=== PATIENT | female | born 1950 | race Caucasian/White ===

== ENCOUNTER → 2024-12-29 12:27 | Outpatient (REF) | payer OTHER, SELFPAY | LOC: WOUND 12:27 | PROVIDERS: ATTENDING PHYSICIAN Surgery; FAMILY PHYSICIAN Family Medicine | DX: L30.8 Other specified dermatitis (principal); L97.829 Non-pressure chronic ulcer of other part of left lower leg with unspecified severity; I89.0 Lymphedema, not elsewhere classified; L30.9 Dermatitis, unspecified | CPT/HCPCS: 99204 ==

== ENCOUNTER → 2025-01-03 13:26 | Outpatient (REF) | payer OTHER, SELFPAY | LOC: WOUND 13:26 | PROVIDERS: ATTENDING PHYSICIAN Surgery; FAMILY PHYSICIAN Family Medicine | DX: L30.8 Other specified dermatitis (principal); L97.829 Non-pressure chronic ulcer of other part of left lower leg with unspecified severity; I89.0 Lymphedema, not elsewhere classified; L30.9 Dermatitis, unspecified | CPT/HCPCS: 99213 ==

== ENCOUNTER → 2025-01-20 14:13 | Outpatient (REF) | payer OTHER, SELFPAY | LOC: WOUND 14:13 | PROVIDERS: ATTENDING PHYSICIAN Surgery; FAMILY PHYSICIAN Family Medicine | DX: L97.829 Non-pressure chronic ulcer of other part of left lower leg with unspecified severity (principal); L30.8 Other specified dermatitis; L03.116 Cellulitis of left lower limb; I89.0 Lymphedema, not elsewhere classified; L30.9 Dermatitis, unspecified | CPT/HCPCS: 99215 ==

== ENCOUNTER 2025-01-20 21:30 | Inpatient (IN) | payer OTHER, SELFPAY ==
[2025-01-20 14:53] VITALS: BP 117/77
--- NOTE | 2025-01-20 16:30 | ED.GENMED ---
History of Present Illness
<Kendra Duke PA-C - Last Filed: 01/20/25 21:53>
General
Chief Complaint: Swelling
Source: patient
Exam Limitations: none
Time Seen by Provider: 01/20/25 16:18
History of Present Illness
History of Present Illness:
74yoF with a history of lymphedema, hypertension, hyperlipidemia, hypothyroidism presenting for evaluation of left leg redness. She has chronic lower extremity lymphedema. Her left leg is typically more edematous and red compared to the right.
She has been on multiple courses of doxycycline over the past 3 months. She just finished a 10-day course yesterday. She started to see wound care earlier this month and has had 3 appointments thus far. She went to see the digital publishing specialist
today who sent her to the ED for IV antibiotics. does report that the redness has been spreading. She endorses chills but denies any fevers. No prior history of MRSA or diabetes. She has never been hospitalized for cellulitis in the past.
Phy Exam
<Kendra Duke PA-C - Last Filed: 01/20/25 21:53>
General Physical Exam
General Presentation: well appearing and no apparent distress
General Skin: warm and dry
General Habitus: normal
General Mental: alert
ENT Exam
ENT Exam: normocephalic
Pulmonary Exam
Pulmonary Exam: no respiratory distress
Neurological Exam
Neurological Exam: alert
Taye Coma Scale
Eye Opening: Spontaneous
Verbal Response: Oriented
Motor Response: Obeys Commands
GCS Total Score: 15
Skin Exam
Skin Exam: warm/dry and other (Significant lymphedema noted to LLE with erythema/warmth throughout the posterior leg and weeping. No open wounds noted. No crepitus or pain out of proportion. )
Psychiatric Exam
Psychiatric Exam: normal mood/affect
Scores
<Kendra Duke PA-C - Last Filed: 01/20/25 21:53>
Heart Failure Risk
Heart Failure Risk Score: Not Applicable
Course
<Kendra Duke PA-C - Last Filed: 01/20/25 21:53>
Orders/Labs/Results
Orders:
Orders
01/20/25 16:29
Venous Doppler Lwr Ext Left [US Periph Venous LOWER Ext LT] Urgent
Comment:
Reason For Exam: L leg swelling, redness
01/20/25 18:58
Vancomycin [Vancocin] 2,000 mg 0.9% Sodium Chloride 500 ml [Nss] 500 ml IV NOW
01/20/25 19:32
Complete Blood Count/With Diff Urgent
Comprehensive Metabolic Panel Urgent
Lactate Level [Lactic Acid] Urgent
Blood Culture Q30M
LAINEY Source: Blood/Venous
Specimen Description:
Blood Culture Q30M
LAINEY Source: Blood/Venous
Specimen Description:
01/20/25 19:59
Cefepime HCl [Maxipime] 2,000 mg IV NOW STA
Sterile Water [Sterile Water For Injection] 10 ml IV NOW STA
01/20/25 20:57
Admit/Transfer Patient As Directed
Co-Sign Provider:
Level of Care: Inpatient admission
Assign to:: Medical/Surgical
Physician / Group: julian
Diagnosis: cellulitis
Reason for Hospitalization: cellulitis
Expected length of stay greater than two midnights?: Yes
ELOS- Estimated Length of Stay in days: 3
I certify the patient meets the requirements for IP care: Yes
PRN Pain Medication Management As Directed
May give lesser potent ordered pain med per pt: Yes
preference::
Protocol:: Medication orders for pain may be administered in a
manner that supports deferring to patient preference
when the pt is:
- Requesting an ordered lesser potent pain medication.
Least to most potent pain medications are defined
as: acetaminophen < NSAID < tramadol < opioids
(morphine, oxycodone, hydromorphone).
- Requesting a lesser dose of the same medication IF
ORDERED.
- Requesting a less intrusive route of administration
if both routes are prescribed by the provider (PO <
IV).
01/20/25 20:58
Code Status As Directed
Resuscitation Status: Full Code
Abnormal Lab Results
01/20/25
19:32
RBC 3.87 L 10^6/uL
(4.20-5.40)
Hgb 11.9 L g/dL
(12.0-16.0)
MCHC 32.2 L g/dL
(33.0-37.0)
Absolute Neuts (auto) 6.7 H 10^3/uL
(1.4-6.5)
Absolute Lymphs (auto) 1.1 L 10^3/uL
(1.2-3.4)
Absolute Monos (auto) 0.7 H 10^3/uL
(0.1-0.6)
Neutrophils % 76.4 H %
(42.2-75.2)
Lymphocytes % 13.0 L %
(20.5-51.1)
BUN 20 H mg/dl
(7-17)
Glucose 104 H mg/dl
(70-99)
01/20/25 19:32
01/20/25 19:32
Vital Signs
Initial and Last Documented VS:
Initial Vital Signs
Temp Pulse Resp BP Pulse Ox
97.6 F 80 16 117/77 96
01/20/25 14:53 01/20/25 14:53 01/20/25 14:53 01/20/25 14:53 01/20/25 14:53
Last Documented Vital Signs
Temp Pulse Resp BP Pulse Ox
97.6 F 80 16 121/54 98
01/20/25 14:53 01/20/25 14:53 01/20/25 14:53 01/20/25 21:01 01/20/25 21:02
<Marshall Caban, DO - Last Filed: 01/20/25 21:03>
Orders/Labs/Results
Orders:
Orders
01/20/25 16:29
Venous Doppler Lwr Ext Left [US Periph Venous LOWER Ext LT] Urgent
Comment:
Reason For Exam: L leg swelling, redness
01/20/25 18:58
Vancomycin [Vancocin] 2,000 mg 0.9% Sodium Chloride 500 ml [Nss] 500 ml IV NOW
01/20/25 19:32
Complete Blood Count/With Diff Urgent
Comprehensive Metabolic Panel Urgent
Lactate Level [Lactic Acid] Urgent
Blood Culture Q30M
LAINEY Source: Blood/Venous
Specimen Description:
Blood Culture Q30M
LAINEY Source: Blood/Venous
Specimen Description:
01/20/25 19:59
Cefepime HCl [Maxipime] 2,000 mg IV NOW STA
Sterile Water [Sterile Water For Injection] 10 ml IV NOW STA
01/20/25 20:57
Admit/Transfer Patient As Directed
Co-Sign Provider:
Level of Care: Inpatient admission
Assign to:: Medical/Surgical
Physician / Group: julian
Diagnosis: cellulitis
Reason for Hospitalization: cellulitis
Expected length of stay greater than two midnights?: Yes
ELOS- Estimated Length of Stay in days: 3
I certify the patient meets the requirements for IP care: Yes
PRN Pain Medication Management As Directed
May give lesser potent ordered pain med per pt: Yes
preference::
Protocol:: Medication orders for pain may be administered in a
manner that supports deferring to patient preference
when the pt is:
- Requesting an ordered lesser potent pain medication.
Least to most potent pain medications are defined
as: acetaminophen < NSAID < tramadol < opioids
(morphine, oxycodone, hydromorphone).
- Requesting a lesser dose of the same medication IF
ORDERED.
- Requesting a less intrusive route of administration
if both routes are prescribed by the provider (PO <
IV).
01/20/25 20:58
Code Status As Directed
Resuscitation Status: Full Code
Abnormal Lab Results
01/20/25
19:32
RBC 3.87 L 10^6/uL
(4.20-5.40)
Hgb 11.9 L g/dL
(12.0-16.0)
MCHC 32.2 L g/dL
(33.0-37.0)
Absolute Neuts (auto) 6.7 H 10^3/uL
(1.4-6.5)
Absolute Lymphs (auto) 1.1 L 10^3/uL
(1.2-3.4)
Absolute Monos (auto) 0.7 H 10^3/uL
(0.1-0.6)
Neutrophils % 76.4 H %
(42.2-75.2)
Lymphocytes % 13.0 L %
(20.5-51.1)
BUN 20 H mg/dl
(7-17)
Glucose 104 H mg/dl
(70-99)
01/20/25 19:32
01/20/25 19:32
Vital Signs
Initial and Last Documented VS:
Initial Vital Signs
Temp Pulse Resp BP Pulse Ox
97.6 F 80 16 117/77 96
01/20/25 14:53 01/20/25 14:53 01/20/25 14:53 01/20/25 14:53 01/20/25 14:53
Last Documented Vital Signs
Temp Pulse Resp BP Pulse Ox
97.6 F 80 16 121/54 98
01/20/25 14:53 01/20/25 14:53 01/20/25 14:53 01/20/25 21:01 01/20/25 21:02
<Kendra Duke PA-C - Last Filed: 01/20/25 21:53>
MDM/Problems Addressed
Differential Diagnosis Includes:
74yoF sent in by wound care center for cellulitis. Hx of lymphedema. Has been on and off doxycycline for 3 months. +Chills. VSS. Patient well appearing in no distress. Evidence of cellulitis on exam with erythema/warmth. Differential diagnosis
includes: cellulitis, lymphedema, chronic venous stasis, less likely DVT, no clinical evidence of NSTI
Labs unremarkable including normal white count and lactate. Venous duplex negative for DVT. IV cefepime and vancomycin ordered. Patient admitted for further management.
<Kendra Duke PA-C - Last Filed: 01/20/25 21:53>
*Pulse Oximetry
SaO2: 96
Oxygen Mode of Delivery: Room air
Patient hypoxic: no
*Critical Care Note
Total Time (30-74mins, 75-104mins- exclusive of procedures): Not Applicable
ED Attending Note
<Kendra Duke PA-C - Last Filed: 01/20/25 21:53>
-
Portions of this chart may have been created with voice recognition software.� Occasional wrong word or��sound alike� substitutions may have occurred due to the inherent limitations of voice recognition software.
<Marshall Caban DO - Last Filed: 01/20/25 21:03>
ED Attending Note
Patient seen and examined by attending physician: Yes
ED Attending Note:
I reviewed and agree with history treatment plan by Kendra Duke PA-C. My exam revealed 74-year-old female with left lower leg lymphedema and cellulitis erythema and warmth noted on exam. Will treat patient with vancomycin. She has failed
outpatient treatment with doxycycline. Admit to hospitalist.
Discharge Plan
Departure
Patient Disposition: Admit
Date of Disposition: 01/20/25
Time of Disposition: 20:29
Presentation/result/management discussed w/ accepting MD/DO: Hospitalist
Discharge Problem:
Cellulitis of left leg
Interventions
Interventions:
*Risk Screen - Suicide Last Done: 01/20/25 14:53
*General Assessment Last Done: 01/20/25 19:22
*Neglect/Abuse Screening Last Done: 01/20/25 14:53
*ED- Fall Risk Assessment Last Done: 01/20/25 19:22
*ED COVID-19 Vaccine History Last Done: 01/20/25 19:22
*ED Influenza Vaccine History Last Done: 01/20/25 19:22
ED- Cardiac Assessment Last Done: 01/20/25 19:22
ED- Pulmonary Assessment Last Done: 01/20/25 19:22
ED-Skin Assessment Last Done: 01/20/25 19:22
[2025-01-20 17:03] VITALS: BMI 46.1
[2025-01-20 19:21] VITALS: BP 136/71
[2025-01-20] MEDS: VANCOCIN 540 MG IV (19:45)
[2025-01-20 20:00] VITALS: BP 107/54
[2025-01-20] MEDS: MAXIPIME 2000 MG IV (20:07)
[2025-01-20] MEDS: STERILE WATER FOR INJECTION 10 ML IV (20:07)
--- NOTE | 2025-01-20 20:32 | HPS.HSE ---
Addendum entered and electronically signed by David Mendiola DO 01/20/25 22:17:
Patient seen and examined independently. Agree with findings and plan as set forth by SARAH Malone.
Patient is a 74y F with PMH significant for chronic lymphedema - L > R, hypertension and morbid obesity who presents to ED at the direction of her Wound Care physician for evaluation of red, weeping, swollen LLE. Patient has been treated for
chronic lymphedema / associated skin changes for months. She has had lymphedema therapy, topical therapy, etc at multiple institutions including [facility] and - most recently - here at . Patient states that she had been on doxycycline off-and-on
for the better part of the past 3 months. She has had increased swelling, redness and marked increase in oozing / fluid drainage from the LLE in that time. With persistent / progressive changes, patient was referred to the ED for evaluation /
admission.
Ass:
Chronic L > R LE Lymphedema
Chronic Venous Stasis Dermatitis
Moisture-Associated Skin Damage
Possible Cellulitis
Hypothyroidism
Benign Hypertension
Morbid Obesity due to excess calories
Plan:
Admit for further evaluation and treatment.
Continue IV Vancomycin for now.
Wound Care eval for local / topical care recommendations.
PT / Lymphedema evaluation.
Efforts to improve moisture control will be important.
Continue usual home medication regimen.
Original Note:
Family Physician
-
Family Physician: Ravinder Jean
Chief Complaint
-
left LE redness
History of Present Illness
74yoF with a history of lymphedema, hypertension, hyperlipidemia, hypothyroidism,mitral valve proplase, heart murmur presenting for evaluation of left leg redness,swelling and weeping. Her left leg is typically more edematous and red compared to
the right. She has been on multiple courses of doxycycline over the past 3 months. She just finished a 10-day course yesterday. She started to see wound care earlier this month and has had 3 appointments thus far. She went to see the wound care
specialist today who sent her to the ED for IV antibiotics. patient also seeing Dermatology as outpatient. does report that the redness has been spreading and getting worse depsite on the antibiotics.her left LE is constantly weeping clear
drainage. She endorses chills but denies any fevers. denied , dizzy or syncope. denied chest pain, sob.denied abdominal pain,n,v,d. denied dysuria or hematuria.
initiated on cefpime and vanoc in ER. blood culture sent from ER. admitting for further management.
Medical History
Past Medical History
Past Medical History: Reports Other
Additional Past Medical History:
Hyperlipidemia, lymphedema, hypothyroidism, hypertension,mitral valve prolapse, heart murmur
Past Surgical History: Reports Other
Additional Past Surgical History:
right knee replacement
partial hysterectomy
Social History
Tobacco: Non-smoker
Alcohol: None
Drug: None
Family History
Family History: Not pertinent
Allergies / Home Medications
Allergies reflects when Allergies were last updated in [facility].
Home Medications with original date entered in [facility]
Allergy/Medication List:
Allergies
Allergy/AdvReac Type Severity Reaction Status Date / Time
Penicillins Allergy Unknown Unknown Verified 01/20/25 14:53
Home Medications
atorvastatin 40 mg tablet (Lipitor) 40 mg PO QPM High Cholesterol 01/20/25
cetirizine 10 mg tablet (Zyrtec) 10 mg PO DAILY Allergies 01/20/25
furosemide 20 mg tablet (Lasix) 20 mg PO BID Fluid Retention/Swelling 01/20/25
levothyroxine 112 mcg tablet (Synthroid) 112 mcg PO DAILY Thyroid 01/20/25
losartan 50 mg tablet 50 mg PO DAILY Heart Disease/Condition 01/20/25
metoprolol succinate 25 mg tablet,extended release 24 hr (Toprol XL) 25 mg PO DAILY Heart Disease/Condition 01/20/25
naproxen 500 mg tablet 500 mg PO BIDPRN PRN MILD PAIN 01/20/25
potassium chloride 20 mEq tablet,extended release 20 meq PO DAILY Electrolyte Repletion 01/20/25
Review of Systems
-
Constitutional: Reports No Symptoms
EENT: Reports No Symptoms
Respiratory: Reports No Symptoms
Cardiac: Reports No Symptoms
Abdomen/GI: Reports No Symptoms
: Reports No Symptoms
Musculoskeletal: Reports No Symptoms
Skin: Reports Other (left LE red and swollen )
Neurological: Reports No Symptoms
Endocrine: Reports No Symptoms
Hematologic/Lymphatic: Reports No Symptoms
Psych: Reports No Symptoms
Physical Exam
Vital Signs
Vital Signs
Temp Pulse Resp BP Pulse Ox
97.6 F 80 16 107/54 98
01/20/25 14:53 01/20/25 14:53 01/20/25 14:53 01/20/25 20:00 01/20/25 20:15
Physical Exam
General: Well Developed, Well Nourished and No Apparent Distress
HEENT: NormoCephalic, Moist mucous membranes and Atraumatic
Respiratory: Clear
Cardiac: S1/S2 and Regular Rhythm; No Murmur or Rub
GI: Soft, Non Tender, Non Distended and Normal Bowel Sounds; No Organomegaly
Rectal: Deferred by Provider
Musculoskeletal: No Clubbing, No Cyanosis and No Edema
Skin: Rash and Other (left LE red, swollen, oozing clear )
Neuro: AO x 3 and Nonfocal/grossly intact
Psych: Calm
Laboratory Results
-
Laboratory Results
Lactic Acid 1.0 mmol/L (0.7-2.0) 01/20/25 19:32
Data Reviewed
-
Lab Data: Labs Reviewed by me
Impression/Plan
-
# Worsening left leg redness/swelling concern for cellulitis
# History for lymphedema
- Failed outpatient antibiotic therapy
- IV Vanco
- Duplex negative for DVT
- Wound care consulted
- Tylenol as needed for pain
#hxt of mitral valve prolapse
#hxt of heart murmur
-follows [facility] cardiology
#HLD
-statin continued
#hypothyroidism
-levothyroxine continued
#essential HTN
-losartan,metoprolol continued
-Lasix continued
#DVT prophylaxis
-Lovenox
#CODE status
-full code
[2025-01-20 21:01] VITALS: BP 121/54
[2025-01-20 21:32] LABS: Hematocrit 37.0 % (37.0-47.0); Hemoglobin 11.9 g/dL (12.0-16.0); Mean Corp Hgb Conc. 32.2 g/dL (33.0-37.0); Mean Corpuscular Volume 95.6 fL (81.0-99.0); Nucleated Red Blood Cells % 0 %; Platelet Count 337 10^3/uL (130-400); Red Cell Dist. Width 14.0 % (11.5-14.5)
[2025-01-20 21:45] LABS: ALT (SGPT) 24 U/L (0-35); AST (SGOT) 26 U/L (14-36); Albumin 3.9 g/dl (3.5-5.0); Alkaline Phosphatase 76 U/L (38-126); Blood Urea Nitrogen 20 mg/dl (7-17); Calcium 10.1 mg/dl (8.4-10.2); Carbon Dioxide 29 mmol/L (22-30); Chloride 102 mmol/L (98-107); Estimated Creatinine Clearance 65 ml/min; Glucose 104 mg/dl (70-99); Potassium 4.1 mmol/L (3.5-5.1); Sodium 135 mmol/L (135-145); Total Protein 6.6 g/dl (6.3-8.2); eGFR > 60.00
[2025-01-20 22:45] VITALS: BP 127/58
--- NOTE | 2025-01-20 23:00 | PTCARENOTE ---
Patient received from ED, AAOX3, ambulates assist x 1 with RW. Apical regular, +4 pitting lower extremity edema bilaterally. L>R Lungs clear on room air. Abdomen round hypoactive bowel sounds. Voids. #20 g in LAC flushed and patent.
[2025-01-21] MEDS: SYNTHROID 112 MCG PO (05:19)
[2025-01-21 06:00] VITALS: BMI 45.3
[2025-01-21 07:00] VITALS: BP 115/52
[2025-01-21 07:46] LABS: Hematocrit 34.0 % (37.0-47.0); Hemoglobin 11.3 g/dL (12.0-16.0); Mean Corp Hgb Conc. 33.2 g/dL (33.0-37.0); Mean Corpuscular Volume 93.9 fL (81.0-99.0); Platelet Count 298 10^3/uL (130-400); Red Cell Dist. Width 14.0 % (11.5-14.5)
--- NOTE | 2025-01-21 07:59 | PHA.VAN.IN ---
Assessment
- Assessment
Renal Function: Unknown baseline
AUC Dosing Plan
- Dosing Variables
Dosing Weight (kg): 101.746
Dosing CrCl (ml/min): 64
Vd coefficient (L/kg): 0.5
- Empiric Dosing
Initial / Loading Dose: 2000mg
Maintenance Regimen: 1500mg q24h
Estimated AUC (mcg*h/mL): 535
Estimated Peak (mcg*h/mL): 39.4
Estimated Trough (mcg/ml): 10.8
Estimated Half Life (H): 12
- Monitoring
No levels ordered at this time: consider at steady state
Pharmacokinetics Vancomycin I
- -
Patient Age: 74
Patient Sex: Female
Vancomycin Day #: 1
Indication: Skin And Soft Tissue
Requesting Provider: gayathri santana
Pertinent Antimicrobial Allergies:
pcns=unknown
Height / Weight:
Height 4 ft 11 in
Actual Weight 101.746 kg
IBW in k.2
- Vital Signs / Lab Results
Temp Pulse Resp BP Pulse Ox
97.9 F 87 20 127/58 100
01/20/25 22:45 01/20/25 22:45 01/20/25 22:45 01/20/25 22:45 01/20/25 23:00
Lab Results - Hematology
01/20/25 01/21/25
19:32 06:45
WBC 8.8 6.6
Lab Results - Chemistry
01/20/25
19:32
BUN 20 H
Creatinine 0.8
Estimated Creat Clear 65
Albumin 3.9
01/20/25
19:32
Lactic Acid 1.0
[2025-01-21 08:05] LABS: Blood Urea Nitrogen 16 mg/dl (7-17); Calcium 9.9 mg/dl (8.4-10.2); Carbon Dioxide 29 mmol/L (22-30); Chloride 104 mmol/L (98-107); Estimated Creatinine Clearance 73 ml/min; Glucose 110 mg/dl (70-99); Potassium 4.3 mmol/L (3.5-5.1); Sodium 138 mmol/L (135-145); eGFR > 60.00
[2025-01-21] MEDS: LASIX 20 MG PO ×2 (09:04→15:14)
[2025-01-21] MEDS: TOPROL XL 25 MG PO (09:05)
[2025-01-21] MEDS: ZYRTEC 10 MG PO (09:05)
[2025-01-21] MEDS: COZAAR 50 MG PO (09:05)
[2025-01-21] MEDS: KCL 20 MEQ PO (09:05)
--- NOTE | 2025-01-21 09:30 | W.PN.HOSP.TC ---
Today's Communication/Plan
-
IV vancomycin
Consulted ID
Assessment / Plan
Assessment / Plan
Physical Exam
General: Obese, No Apparent Distress
HEENT: Normocephalic, Moist mucous membranes and Atraumatic
Respiratory: Clear
Cardiac: S1/S2 and Regular Rhythm; No Murmur or Rub
GI: Soft, Non Tender, Non Distended and Normal Bowel Sounds;
Rectal: no bleeding
Musculoskeletal: No Clubbing, No Cyanosis and No Edema
Skin: b/l lymphedema. Rash and Other (left LE red, swollen, oozing clear )
Neuro: AO x 3 and Nonfocal/grossly intact
Psych: Calm
A/P:
# Worsening left leg redness/swelling concern for cellulitis
# History for lymphedema
- Failed outpatient antibiotic therapy
- IV Vanco
- Duplex negative for DVT
She reports less pain in legs
-Blood culture is pending
- Wound care consulted. No fever or leukocytosis.
- Tylenol as needed for pain
- consulted ID, help appreciated.
#hxt of mitral valve prolapse
#hxt of heart murmur
-follows [facility] cardiology
# Morbid Obesity BMI 45
# Skin dermatitis on arm, she requested triamcinolone cream
#HLD
-statin continued
#hypothyroidism
-levothyroxine continued
#essential HTN
-losartan,metoprolol continued
-Lasix continued
#DVT prophylaxis
-Lovenox
#CODE status
-full code
Total time spent to see the patient, examine the patient, review data and lab results, discuss treatment plan with patient, nursing staff around 55 minutes
Anticipated Discharge: > 48 hours
Subjective/Interval History
-
Date of Service: January 21, 2025
She reports feeling better
Not much pain in lower extremities
Objective Data
-
Labs:
Laboratory Results
01/20/25 01/21/25
19:32 06:45
WBC 8.8 6.6
Hgb 11.9 L 11.3 L
Hct 37.0 34.0 L
Plt Count 337 298
Sodium 135 138
Potassium 4.1 4.3
Chloride 102 104
Carbon Dioxide 29 29
BUN 20 H 16
Creatinine 0.8 0.7
Glucose 104 H 110 H
Calcium 10.1 9.9
Total Bilirubin 0.8
AST 26
ALT 24
Alkaline Phosphatase 76
Vital Signs:
Vital Signs
Temp Pulse Resp BP Pulse Ox
98.3 F 83 18 115/52 95
01/21/25 07:00 01/21/25 07:00 01/21/25 07:00 01/21/25 07:00 01/21/25 07:00
[2025-01-21 11:16] VITALS: BP 106/67
--- NOTE | 2025-01-21 11:46 | CON.ID ---
Consultation
-
Date/Time Consultation Requested: 01/21/2025 06:55
Date/Time Consultation Performed: 01/21/2025 1146
Requesting Provider: Dr. Carpenter
Performing Provider: Dr. Chilel
Reason for Consultation: Lower extremity cellulitis
Chief Complaint / Past History
History of Present Illness
Maxwell Garcia is a 74-year-old female being seen in infectious ease consult regarding left lower extremity cellulitis. History is obtained from chart review, along with patient interview.
The patient has a longstanding history of lymphedema which she believes began around 2012. In that time she has tried to care for the legs, but ultimately the lymphedema has progressed to stage IV disease. She reports prior evaluations at [facility] without significant improvement. She notes that earlier this week she began to have increasing drainage from the left lower extremity, along with some discomfort. She also noted increasing redness. She admits to some chills,
but has not developed any fevers. Because of the drainage and redness she presented to the emergency room for further evaluation. Here she was started on empiric antibiotics and Infectious Diseases is asked to comment upon further antibiotic
management.
At today's visit she notes that the drainage has improved since admission.
Past History
Additional Past Medical History:
Chronic stage IV lower extremity lymphedema (L >R)
Hypothyroidism
HTN
Morbid obesity
Hx mitral valve prolapse
Additional Past Surgical History:
Right knee replacement
Partial hysterectomy
Allergy History:
Penicillins Allergy (Unknown, Verified 01/20/25 14:53)
'I was told I was allergic by my parents'
Medications Reviewed: Yes
Current Antibiotics:
- Vancomycin (dosing per pharmacy)
Social History
Tobacco: Former Smoker
Alcohol: None
Drug: None
Employment: Retired
Family History
Family History: Not Pertinent
Review of Systems
Vital Signs
Temp Pulse Resp BP Pulse Ox
98.3 F 83 18 115/52 95
01/21/25 07:00 01/21/25 07:00 01/21/25 07:00 01/21/25 07:00 01/21/25 07:00
Physical Exam
Physical Exam
Constitutional: No Acute Distress, Comfortable, Non-toxic and Obese
Head: Normocephalic
Eyes: Pupils Equal, Pupils Round, No Conjunctival Hemorrhage and Sclera Anicteric
Oral: No Thrush and No Ulcers
Cardiovascular: S1/S2 and Murmur; Negative S3/S4
Pulmonary: Clear; Negative Wheezes, Rales or Rhonchi
Gastrointestinal: Soft, Non Tender, Non Distended and Normal Bowel Sounds
Extremities: Edema (4+ bilateral lower extremity edema. Stage IV bilateral lymphedema (L >R)) and Erythema (Distal left lower extremity)
Skin: Warm and Dry
Neurological: Awake and Alert
Psychological: Calm
Lab / Diagnostic Study Results
01/21/25 06:45
01/21/25 06:45
Abs Immat Gran (auto) 0.0 10^3/uL (0-0.05) 01/20/25 19:32
Absolute Neuts (auto) 6.7 10^3/uL (1.4-6.5) H 01/20/25 19:32
Absolute Lymphs (auto) 1.1 10^3/uL (1.2-3.4) L 01/20/25 19:32
Absolute Monos (auto) 0.7 10^3/uL (0.1-0.6) H 01/20/25 19:32
Absolute Basos (auto) 0.0 10^3/uL (0-0.2) 01/20/25 19:32
Immature Gran % 0.3 % (0-0.5) 01/20/25 19:32
Neutrophils % 76.4 % (42.2-75.2) H 01/20/25 19:32
Lymphocytes % 13.0 % (20.5-51.1) L 01/20/25 19:32
Monocytes % 8.4 % (1.7-9.3) 01/20/25 19:
Eosinophils % 1.4 % (0-6) 01/20/25 19:32
Basophils % 0.5 % (0-2) 01/20/25 19:32
Lactic Acid 1.0 mmol/L (0.7-2.0) 01/20/25:
Microbiology Results
Micro:
01/20/25: Blood Culture - Pending
Blood/Venous
01/20/25 Blood Culture - Pending
Blood/Venous
Imaging:
01/20/2025 Duplex ultrasound left lower extremity: no sonographic evidence for left lower extremity DVT. Distal lower extremity veins were not visualized secondary to soft tissue edema.
Assessment / Plan
Left lower extremity erythema; suspected cellulitis
Stage IV bilateral lower extremity lymphedema; uncontrolled
Normal white count with left shift
Hypothyroidism
HTN
Morbid obesity
Hx mitral valve prolapse
Recommendations:
Blood cultures obtained and currently in progress.
Narrow antibiotic therapy to cefazolin 2 gm IV q.8 hours.
Patient counseled extensively on lymphedema including etiology, pathophysiology and therapies.
Will order lower extremity Dheeraj wrap's. Patient instructed to elevate legs above the level of the heart 1 hour out of every 6.
Patient also instructed in lymphatic massage which she can self perform.
Will follow for clinical improvement.
--- NOTE | 2025-01-21 12:06 | CM ---
Initial assessment completed. Patient is a 74yoF with a history of lymphedema, hypertension, hyperlipidemia, hypothyroidism,mitral valve proplase, heart murmur presenting for evaluation of left leg redness,swelling and weeping.
Patient resides w/ spouse in a single story home, 1/2 step to enter. Patient ambulates independently w/ a RW and cane. Patient stated she uses a RW when out in the community and a smaller RW or her cane while in the home. Patient has toilet rail,
grab bar and shower chair in bathroom.
SNF in [place], home PT hx in [place]. Patient goes to the [facility]. Patient will begin going to the [facility] on 02/24.
Address, point of contact and insurance verified
PCP: Ravinder Jean
Pharmacy: [facility] for [facility]
PT/OT evaluated patient, no skilled needs at d/c
Plan: Home, no needs
[2025-01-21] MEDS: MIRALAX 17 GRAMS PO (13:46)
[2025-01-21] MEDS: TRIAMCINOLONE ACETONIDE 0.025% CREAM 1 APPLIC TOPICAL ×2 (13:46→20:45)
[2025-01-21 15:00] VITALS: BP 117/65
[2025-01-21] MEDS: ANCEF 10 IV ×2 (15:04→22:38)
[2025-01-21] MEDS: LOVENOX 40 MG SC (18:00)
[2025-01-21] MEDS: LIPITOR 40 MG PO (18:00)
[2025-01-21] MEDS: NAPROSYN 500 MG PO (18:42)
[2025-01-21 23:00] VITALS: BP 103/73
[2025-01-22] MEDS: ANCEF 10 IV ×3 (06:17→21:05)
[2025-01-22] MEDS: SYNTHROID 112 MCG PO (06:18)
[2025-01-22 07:00] VITALS: BP 119/66
[2025-01-22 07:44] LABS: Hematocrit 31.6 % (37.0-47.0); Hemoglobin 10.4 g/dL (12.0-16.0); Mean Corp Hgb Conc. 32.9 g/dL (33.0-37.0); Mean Corpuscular Volume 94.0 fL (81.0-99.0); Platelet Count 279 10^3/uL (130-400); Red Cell Dist. Width 14.1 % (11.5-14.5)
[2025-01-22 07:52] LABS: Blood Urea Nitrogen 19 mg/dl (7-17); Calcium 9.7 mg/dl (8.4-10.2); Carbon Dioxide 29 mmol/L (22-30); Chloride 104 mmol/L (98-107); Estimated Creatinine Clearance 64 ml/min; Glucose 102 mg/dl (70-99); Potassium 4.4 mmol/L (3.5-5.1); Sodium 136 mmol/L (135-145); eGFR > 60.00
[2025-01-22] MEDS: TOPROL XL 25 MG PO (09:13)
[2025-01-22] MEDS: KCL 20 MEQ PO (09:14)
[2025-01-22] MEDS: MIRALAX 17 GRAMS PO (09:15)
[2025-01-22] MEDS: COZAAR 50 MG PO (09:15)
[2025-01-22] MEDS: LASIX 20 MG PO ×2 (09:15→16:52)
[2025-01-22] MEDS: ZYRTEC 10 MG PO (09:16)
[2025-01-22] MEDS: TRIAMCINOLONE ACETONIDE 0.025% CREAM 1 APPLIC TOPICAL ×2 (09:21→21:03)
--- NOTE | 2025-01-22 09:26 | W.PN.HOSP.TC ---
Today's Communication/Plan
-
IV Ancef
Wound care
c/w bilateral lower extremity Dheeraj Warp
Assessment / Plan
Assessment / Plan
Physical Exam
General: Obese, No Apparent Distress
HEENT: Normocephalic, Moist mucous membranes and Atraumatic
Respiratory: Clear
Cardiac: S1/S2 and Regular Rhythm; No Murmur or Rub
GI: Soft, Non Tender, Non Distended and Normal Bowel Sounds;
Rectal: no bleeding
Musculoskeletal: No Clubbing, No Cyanosis and No Edema
Skin: b/l lymphedema. Rash and Other (left LE red, swollen, oozing clear )
Neuro: AO x 3 and Nonfocal/grossly intact
Psych: Calm
A/P:
# Worsening left leg redness/swelling concern for cellulitis
# History for lymphedema
- Failed outpatient antibiotic therapy
- IV Vanco, changed to IV Ancef
- Duplex negative for DVT
She reports less pain in legs
-Blood culture is NGTD
- Wound care consulted. No fever or leukocytosis.
- Tylenol as needed for pain
- consulted ID, help appreciated.
#hxt of mitral valve prolapse
#hxt of heart murmur
-follows [facility]
# Chronic pain
Pt requested to c/w Naproxen PRN in the hospital.
# constipation
Ordered MiraLAX
# Morbid Obesity BMI 45
# Skin dermatitis on arm, she requested triamcinolone cream
#HLD
-statin continued
#hypothyroidism
-levothyroxine continued
#essential HTN
-losartan,metoprolol continued
-Lasix continued
#DVT prophylaxis
-Lovenox
#CODE status
-full code
Total time spent to see the patient, examine the patient, review data and lab results, discuss treatment plan with patient, nursing staff around 55 minutes
Anticipated Discharge: > 48 hours
Subjective/Interval History
-
Date of Service: January 22, 2025
She is feeling better
No pain or fever or chills
Objective Data
-
Labs:
Laboratory Results
01/22/25
06:12
WBC 5.9
Hgb 10.4 L
Hct 31.6 L
Plt Count 279
Sodium 136
Potassium 4.4
Chloride 104
Carbon Dioxide 29
BUN 19 H
Creatinine 0.8
Glucose 102 H
Calcium 9.7
Vital Signs:
Vital Signs
Temp Pulse Resp BP Pulse Ox
98.1 F 78 18 119/66 96
01/22/25 07:00 01/22/25 07:00 01/22/25 07:00 01/22/25 07:00 01/22/25 07:00
I&O
01/21/25 01/22/25 01/23/25
06:59 05:59 06:59
Intake Total 1380 / 1380
Balance 1380 / 1380
--- NOTE | 2025-01-22 12:51 | PTCARENOTE ---
LLE reddened with local erythema, edematous, oozing clear drainage, more on distal aspect. sitting oob in chair, encouraged to elevate while oob to help decrease edema. re-wrapped with ariana wrap this am after adaptic, 4x4's, abd's applied.
tolerating diet, vss, will continue to monitor.
[2025-01-22] MEDS: FLUSH (NSS) 2 FLUSH IV (14:31)
[2025-01-22 15:00] VITALS: BP 104/60
[2025-01-22] MEDS: LIPITOR 40 MG PO (16:56)
[2025-01-22] MEDS: LOVENOX 40 MG SC (16:56)
[2025-01-22] MEDS: TYLENOL 650 MG PO (21:08)
[2025-01-22 23:05] VITALS: BP 107/51
[2025-01-23] MEDS: SYNTHROID 112 MCG PO (05:33)
[2025-01-23] MEDS: ANCEF 10 IV ×3 (05:33→22:50)
[2025-01-23 05:50] VITALS: BMI 46.1
--- NOTE | 2025-01-23 05:55 | PTCARENOTE ---
Pt awake intermittently t/o the night. Pt ambulatory to bathroom when needed with assistance. PRN Tylenol administered for pain. LLE ariana wrap in place. No issues to report. Vital signs stable. WIll continue to monitor.
[2025-01-23 07:35] VITALS: BP 109/58
[2025-01-23 07:37] LABS: Hematocrit 33.4 % (37.0-47.0); Hemoglobin 11.1 g/dL (12.0-16.0); Mean Corp Hgb Conc. 33.2 g/dL (33.0-37.0); Mean Corpuscular Volume 93.8 fL (81.0-99.0); Platelet Count 294 10^3/uL (130-400); Red Cell Dist. Width 13.9 % (11.5-14.5)
[2025-01-23] MEDS: KCL 20 MEQ PO (07:50)
[2025-01-23] MEDS: MIRALAX 17 GRAMS PO (07:50)
[2025-01-23] MEDS: TOPROL XL 25 MG PO (07:51)
[2025-01-23] MEDS: COZAAR 50 MG PO (07:51)
[2025-01-23] MEDS: LASIX 20 MG PO (07:51)
[2025-01-23] MEDS: TRIAMCINOLONE ACETONIDE 0.025% CREAM 1 APPLIC TOPICAL ×2 (07:52→20:15)
[2025-01-23] MEDS: ZYRTEC 10 MG PO (07:52)
[2025-01-23 08:05] LABS: Blood Urea Nitrogen 21 mg/dl (7-17); Calcium 10.0 mg/dl (8.4-10.2); Carbon Dioxide 30 mmol/L (22-30); Chloride 102 mmol/L (98-107); Estimated Creatinine Clearance 74 ml/min; Glucose 100 mg/dl (70-99); Potassium 4.8 mmol/L (3.5-5.1); Sodium 136 mmol/L (135-145); eGFR > 60.00
--- NOTE | 2025-01-23 12:27 | W.PN.ID1 ---
Date of Service
Date of Service: January 23, 2025
Today's Communication
Continue abx.
Assessment / Plan
Left lower extremity erythema; suspected cellulitis
Stage IV bilateral lower extremity lymphedema; uncontrolled
Normal white count with left shift
Hypothyroidism
HTN
Morbid obesity
Hx mitral valve prolapse
Recommendations:
Blood cultures NGTD
Continue cefazolin 2 gm IV q.8h another 24-48h and then transtion to oral keflex.
Patient counseled extensively on lymphedema including etiology, pathophysiology and therapies.
Continue lower extremity Dheeraj wrap's. Patient instructed to elevate legs above the level of the heart 1 hour out of every 6.
Patient also instructed in lymphatic massage which she can self perform.
Mild clinical improvement noted today.
Chief Complaint
-: Cellulitis
Subjective / Review of Systems
Review of Systems: No Fever and No Chills
Vital Signs / Physical Exam
Vital Signs
Vital Signs
Temp Pulse Resp BP Pulse Ox
98.1 F 73 12 109/58 94
01/23/25 07:35 01/23/25 07:35 01/23/25 07:35 01/23/25 07:35 01/23/25 07:35
Physical Exam
Constitutional: Comfortable, Non-toxic and Obese
Eyes: Sclera Anicteric
Cardiovascular: S1/S2; Negative S3/S4
Pulmonary: Non Labored
Gastrointestinal: Soft and Non Tender
Extremities: Edema (Stage IV B/L LE lymphedema; L>>R. ) and Erythema (B/L. Little significant warmth or tenderness.)
Neurological: Awake and Alert
Psychological: Calm
Objective Data
Lab Data
Lab Results
01/23/25 06:35
01/23/25 06:35
Estimated Creat Clear 74 ml/min 01/23/25 06:35
Lactic Acid 1.0 mmol/L (0.7-2.0) 01/20/25 19:32
Total Bilirubin 0.8 mg/dl (0.2-1.3) 01/20/25 19:32
AST 26 U/L (14-36) 01/20/25 19:32
ALT 24 U/L (0-35) 01/20/25 19:32
Alkaline Phosphatase 76 U/L (38-126) 01/20/25 19:32
Most recent labs reviewed.
Micro Results:
01/20/25 19:32 Blood Culture - Preliminary
Blood/Venous No Growth in 48 hours- Final report to follow
01/20/25 19:32 Blood Culture - Preliminary
Blood/Venous No Growth in 48 hours- Final report to follow
Imaging:
01/20/2025 Duplex ultrasound left lower extremity: no sonographic evidence for left lower extremity DVT. Distal lower extremity veins were not visualized secondary to soft tissue edema.
--- NOTE | 2025-01-23 13:41 | W.PN.HOSP.TC ---
Today's Communication/Plan
-
Continue IV antibiotics for another 24 to 48 hours
Wound care, Dheeraj wrap's
Assessment / Plan
Assessment / Plan
Physical Exam
General: Obese, No Apparent Distress
HEENT: Normocephalic, Moist mucous membranes and Atraumatic
Respiratory: Clear
Cardiac: S1/S2 and Regular Rhythm; No Murmur or Rub
GI: Soft, Non Tender, Non Distended and Normal Bowel Sounds;
Rectal: no bleeding
Musculoskeletal: No Clubbing, No Cyanosis and No Edema
Skin: b/l lymphedema. Rash and Other (left LE red, swollen, oozing clear )
Neuro: AO x 3 and Nonfocal/grossly intact
Psych: Calm
A/P:
# Worsening left leg redness/swelling concern for cellulitis
# History for lymphedema
- Failed outpatient antibiotic therapy
- IV Vanco, changed to IV Ancef, continue for another 24 to 48 hours
- Duplex negative for DVT
She reports less pain in legs
-Blood culture is NGTD
- Wound care consulted. No fever or leukocytosis.
- Tylenol as needed for pain
- consulted ID, help appreciated.
#hxt of mitral valve prolapse
#hxt of heart murmur
-follows [facility]
# Chronic pain
Pt requested to c/w Naproxen PRN in the hospital.
# constipation
Ordered MiraLAX
# Morbid Obesity BMI 45
# Skin dermatitis on arm, she requested triamcinolone cream
#HLD
-statin continued
#hypothyroidism
-levothyroxine continued
#essential HTN
-losartan,metoprolol continued
-Lasix continued
#DVT prophylaxis
-Lovenox
#CODE status
-full code
Anticipated Discharge: 24 - 48 hours
Subjective/Interval History
-
Date of Service: January 23, 2025
Erythema, weeping improving
Objective Data
-
Labs:
Laboratory Results
01/23/25
06:35
WBC 5.2
Hgb 11.1 L
Hct 33.4 L
Plt Count 294
Sodium 136
Potassium 4.8
Chloride 102
Carbon Dioxide 30
BUN 21 H
Creatinine 0.7
Glucose 100 H
Calcium 10.0
Vital Signs:
Vital Signs
Temp Pulse Resp BP Pulse Ox
98.1 F 73 12 109/58 94
01/23/25 07:35 01/23/25 07:35 01/23/25 07:35 01/23/25 07:35 01/23/25 07:35
I&O
01/22/25 01/23/25 01/24/25
05:59 06:59 06:59
Intake Total 1380 / 1380 1380 / 1380
Balance 1380 / 1380 1380 / 1380
Review of Systems
-
History Source: Patient
All other systems: Not reviewed unless documented
Data Reviewed
-
Ultrasound: Report Reviewed by me
Labs: Labs Reviewed by me
--- NOTE | 2025-01-23 14:15 | WOUNDNOTE ---
WO RN note: Patient admitted with L leg cellulitis. Patient lives with her . She plans to follow up with [facility]. She said she will ask for VN when discharged.
See H&P for complete history.
PMH: lymphedema stage 4 (L>R), hypothyroid, HTN, morbid obesity, mitral valve prolapse, R knee replacement, partial hysterectomy, former smoker.
Wound Location and type/assessment: Patient admitted with: diffuse erythema LLE with dry skin. Edema is less. She spends most of her time with her legs down in a recliner but does sleep in the bed here at night and sleeps on her sofa with her legs
up at home. R buttocks bruise. MASD abdominal/groin folds and posterior knee folds, ankle folds.
Appetite: good.
Pressure redistribution devices in place: [employer] Accumax. Patient can stand independently.
Plan: Instructed patient and skin care and how to applied bilateral knee high Dheeraj wraps. Instructed how to pad deep ankle crease with ABD pad under Dheeraj wrap. Patient will not allow the dheeraj wrap to go above her knee. Updated Dr. Fernandes and
Dr. Chilel via tiger text. Confirmed can apply bilateral knee high Dheeraj wrap with Dr. Fernandes. Discussed with FRANSICO Montanez.
Care plan and discharge instructions to be updated. Will sign off. Call if needed.
Note to case management requested for discharge: VN.
Recommend follow up at wound care center upon discharge.
[2025-01-23] MEDS: LASIX PO (15:16)
[2025-01-23 16:04] VITALS: BP 94/62
--- NOTE | 2025-01-23 16:45 | CM ---
PT - no skilled needs.
Watch for wound care needs.
Plan: home with outpatient lymphedema clinic.
[2025-01-23] MEDS: LOVENOX 40 MG SC (17:51)
[2025-01-23] MEDS: LIPITOR 40 MG PO (17:51)
[2025-01-23] MEDS: DESENEX/MITRAZOL/ZEASORB 1 APPLIC TOPICAL (20:14)
[2025-01-23] MEDS: TYLENOL 650 MG PO (22:49)
[2025-01-23 23:18] VITALS: BP 126/77
[2025-01-24] MEDS: ANCEF 10 IV ×3 (06:02→22:00)
[2025-01-24] MEDS: SYNTHROID 112 MCG PO (06:02)
[2025-01-24 07:00] LABS: Hematocrit 35.6 % (37.0-47.0); Hemoglobin 11.4 g/dL (12.0-16.0); Mean Corp Hgb Conc. 32.0 g/dL (33.0-37.0); Mean Corpuscular Volume 96.0 fL (81.0-99.0); Platelet Count 294 10^3/uL (130-400); Red Cell Dist. Width 13.9 % (11.5-14.5)
[2025-01-24 07:15] VITALS: BP 105/54
[2025-01-24 07:19] LABS: Blood Urea Nitrogen 15 mg/dl (7-17); Calcium 10.0 mg/dl (8.4-10.2); Carbon Dioxide 29 mmol/L (22-30); Chloride 102 mmol/L (98-107); Estimated Creatinine Clearance 74 ml/min; Glucose 105 mg/dl (70-99); Potassium 4.5 mmol/L (3.5-5.1); Sodium 135 mmol/L (135-145); eGFR > 60.00
[2025-01-24 07:40] VITALS: BP 109/58
[2025-01-24] MEDS: MIRALAX 17 GRAMS PO (07:42)
[2025-01-24] MEDS: KCL 20 MEQ PO (07:42)
[2025-01-24] MEDS: LASIX 20 MG PO ×2 (07:42→16:59)
[2025-01-24] MEDS: COZAAR 50 MG PO (07:42)
[2025-01-24] MEDS: TOPROL XL 25 MG PO (07:43)
[2025-01-24] MEDS: ZYRTEC 10 MG PO (07:43)
[2025-01-24] MEDS: HYDROPHOR 1 APPLIC TOPICAL (07:43)
[2025-01-24] MEDS: DESENEX/MITRAZOL/ZEASORB 1 APPLIC TOPICAL ×2 (07:44→21:59)
[2025-01-24] MEDS: TRIAMCINOLONE ACETONIDE 0.025% CREAM 1 APPLIC TOPICAL ×2 (07:49→21:59)
--- NOTE | 2025-01-24 11:49 | W.PN.HOSP.TC ---
Today's Communication/Plan
-
abx
dc in 24 hours - on oral abx
wound care
Assessment / Plan
Assessment / Plan
Physical Exam
General: Obese, No Apparent Distress
HEENT: Normocephalic, Moist mucous membranes and Atraumatic
Respiratory: Clear
Cardiac: S1/S2 and Regular Rhythm; No Murmur or Rub
GI: Soft, Non Tender, Non Distended and Normal Bowel Sounds;
Rectal: no bleeding
Musculoskeletal: No Clubbing, No Cyanosis and No Edema
Skin: b/l lymphedema. Rash and Other (left LE red, swollen, oozing clear )
Neuro: AO x 3 and Nonfocal/grossly intact
Psych: Calm
A/P:
# Worsening left leg redness/swelling concern for cellulitis
# History for lymphedema
- Failed outpatient antibiotic therapy
- IV Vanco, changed to IV Ancef, continue for another 24 hours
- Duplex negative for DVT
She reports less pain in legs
-Blood culture is NGTD
- Wound care consulted. No fever or leukocytosis.
- Tylenol as needed for pain
- consulted ID, help appreciated.
#hxt of mitral valve prolapse
#hxt of heart murmur
-follows [facility] cardiology
# Chronic pain
Pt requested to c/w Naproxen PRN in the hospital.
# constipation
Ordered MiraLAX
# Morbid Obesity BMI 45
# Skin dermatitis on arm, she requested triamcinolone cream
#HLD
-statin continued
#hypothyroidism
-levothyroxine continued
#essential HTN
-losartan,metoprolol continued
-Lasix continued
#DVT prophylaxis
-Lovenox
#CODE status
-full code
Anticipated Discharge: Within 24 hours
Subjective/Interval History
-
Date of Service: January 24, 2025
No acute events overnight, weeping has improved
Objective Data
-
Labs:
Laboratory Results
01/24/25
06:27
WBC 5.1
Hgb 11.4 L
Hct 35.6 L
Plt Count 294
Sodium 135
Potassium 4.5
Chloride 102
Carbon Dioxide 29
BUN 15
Creatinine 0.7
Glucose 105 H
Calcium 10.0
Vital Signs:
Vital Signs
Temp Pulse Resp BP Pulse Ox
97.9 F 67 16 105/54 97
01/24/25 07:40 01/24/25 07:43 01/24/25 07:40 01/24/25 07:43 01/24/25 07:40
I&O
01/23/25 01/24/25 01/25/25
06:59 06:59 06:59
Intake Total 1380 / 1380 1200 / 1200
Balance 1380 / 1380 1200 / 1200
Review of Systems
-
History Source: Patient
All other systems: Not reviewed unless documented
Data Reviewed
-
Ultrasound: Report Reviewed by me
Labs: Labs Reviewed by me
--- NOTE | 2025-01-24 12:05 | W.PN.ID1 ---
Date of Service
Date of Service: January 24, 2025
Today's Communication
Continue abx. See below...
Assessment / Plan
Left lower extremity erythema; suspected cellulitis
Stage IV bilateral lower extremity lymphedema; uncontrolled
Normal white count with left shift
Hypothyroidism
HTN
Morbid obesity
Hx mitral valve prolapse
Recommendations:
Blood cultures NGTD
OK to transition to oral keflex 500mg PO QID x 5 days
Patient counseled extensively on lymphedema including etiology, pathophysiology and therapies.
Continue lower extremity Dheeraj wrap's. Patient instructed to elevate legs above the level of the heart 1 hour out of every 6.
Patient also instructed in lymphatic massage which she can self perform.

Chief Complaint
-: Cellulitis (LLE)
Subjective / Review of Systems
Patient seen and examined. She reports improvement in leg discomfort. Tolerating compression.
Review of Systems: No Fever and No Chills
Vital Signs / Physical Exam
Vital Signs
Vital Signs
Temp Pulse Resp BP Pulse Ox
97.9 F 67 16 105/54 97
01/24/25 07:40 01/24/25 07:43 01/24/25 07:40 01/24/25 07:43 01/24/25 07:40
Physical Exam
Constitutional: Comfortable, Non-toxic and Obese
Eyes: Sclera Anicteric
Cardiovascular: S1/S2; Negative S3/S4
Pulmonary: Non Labored
Gastrointestinal: Soft and Non Tender
Extremities: Edema (Stage IV B/L LE lymphedema; L>>R. ) and Erythema (B/L. Little significant warmth or tenderness.)
Neurological: Awake and Alert
Psychological: Calm
Objective Data
Lab Data
Lab Results
01/24/25 06:27
01/24/25 06:27
Estimated Creat Clear 74 ml/min 01/24/25 06:27
Lactic Acid 1.0 mmol/L (0.7-2.0) 01/20/25 19:32
Total Bilirubin 0.8 mg/dl (0.2-1.3) 01/20/25 19:32
AST 26 U/L (14-36) 01/20/25 19:32
ALT 24 U/L (0-35) 01/20/25 19:32
Alkaline Phosphatase 76 U/L (38-126) 01/20/25 19:32
Most recent labs reviewed.
Micro Results:
01/20/25 19:32 Blood Culture - Preliminary
Blood/Venous No Growth in 72 hours- Final report to follow
01/20/25 19:32 Blood Culture - Preliminary
Blood/Venous No Growth in 72 hours- Final report to follow
Imaging:
01/20/2025 Duplex ultrasound left lower extremity: no sonographic evidence for left lower extremity DVT. Distal lower extremity veins were not visualized secondary to soft tissue edema.
--- NOTE | 2025-01-24 13:18 | CM ---
CM following for discharge planning needs. Pt has wound care needs and will follow up at the wound care clinic. IV abx changed to oral. Anticipate discharge tomorrow.
--- NOTE | 2025-01-24 15:00 | PTCARENOTE ---
Attempted to put tubigrips on pt, once in place on LE, pt asked to removed them stating that they were too tight and uncomfortable and she was not going to wear them. Tubi plant attendant removed and URSZULA wraps on pt's b/l LE. Call renee is within reach, POC
ongoing.
[2025-01-24 16:00] VITALS: BP 127/56
[2025-01-24] MEDS: LIPITOR 40 MG PO (17:01)
[2025-01-24] MEDS: LOVENOX 40 MG SC (17:02)
[2025-01-24] MEDS: TYLENOL 650 MG PO (22:09)
[2025-01-24 23:16] VITALS: BP 141/62
[2025-01-25] MEDS: SYNTHROID 112 MCG PO (06:07)
[2025-01-25] MEDS: ANCEF 10 IV (06:07)
[2025-01-25 07:04] LABS: Hematocrit 32.0 % (37.0-47.0); Hemoglobin 10.6 g/dL (12.0-16.0); Mean Corp Hgb Conc. 33.1 g/dL (33.0-37.0); Mean Corpuscular Volume 91.2 fL (81.0-99.0); Platelet Count 275 10^3/uL (130-400); Red Cell Dist. Width 14.0 % (11.5-14.5)
[2025-01-25 07:15] VITALS: BP 125/62
[2025-01-25 07:27] LABS: Blood Urea Nitrogen 14 mg/dl (7-17); Calcium 9.7 mg/dl (8.4-10.2); Carbon Dioxide 31 mmol/L (22-30); Chloride 102 mmol/L (98-107); Estimated Creatinine Clearance 86 ml/min; Glucose 101 mg/dl (70-99); Potassium 4.5 mmol/L (3.5-5.1); Sodium 135 mmol/L (135-145); eGFR > 60.00
[2025-01-25] MEDS: LASIX 20 MG PO (08:19)
[2025-01-25] MEDS: COZAAR 50 MG PO (08:19)
[2025-01-25] MEDS: MIRALAX 17 GRAMS PO (08:19)
[2025-01-25] MEDS: KCL 20 MEQ PO (08:19)
[2025-01-25] MEDS: TOPROL XL 25 MG PO (08:20)
[2025-01-25] MEDS: ZYRTEC 10 MG PO (08:20)
[2025-01-25] MEDS: DESENEX/MITRAZOL/ZEASORB 1 APPLIC TOPICAL (12:48)
[2025-01-25] MEDS: HYDROPHOR 1 APPLIC TOPICAL (12:49)
[2025-01-25] MEDS: TRIAMCINOLONE ACETONIDE 0.025% CREAM 1 APPLIC TOPICAL (12:50)
--- NOTE | 2025-01-25 13:10 | W.PN.HOSP.TC ---
Addendum entered and electronically signed by Dilan Fernandes MD 01/25/25 16:03:
[id number]
Original Note:
Today's Communication/Plan
-
cephalexin 500mg qid x 5 days
URSZULA wraps
f/u pcp outpt
Assessment / Plan
Assessment / Plan
Physical Exam
General: Obese, No Apparent Distress
HEENT: Normocephalic, Moist mucous membranes and Atraumatic
Respiratory: Clear
Cardiac: S1/S2 and Regular Rhythm; No Murmur or Rub
GI: Soft, Non Tender, Non Distended and Normal Bowel Sounds;
Rectal: no bleeding
Musculoskeletal: No Clubbing, No Cyanosis and No Edema
Skin: b/l lymphedema. Rash and Other (left LE improved erythema, no more drainage)
Neuro: AO x 3 and Nonfocal/grossly intact
Psych: Calm
A/P:
# Worsening left leg redness/swelling concern for cellulitis
# History for lymphedema
- Failed outpatient antibiotic therapy
- IV Vanco, changed to IV Ancef, continue for another 24 hours - switch to cephalexin 500mg qid x 5 more days
- Duplex negative for DVT
She reports less pain in legs
-Blood culture is NGTD
- Wound care consulted. No fever or leukocytosis.
- Tylenol as needed for pain
- consulted ID, help appreciated.
#hxt of mitral valve prolapse
#hxt of heart murmur
-follows [facility]ology
# Chronic pain
Pt requested to c/w Naproxen PRN in the hospital.
# constipation
Ordered MiraLAX
# Morbid Obesity BMI 45
# Skin dermatitis on arm, she requested triamcinolone cream
#HLD
-statin continued
#hypothyroidism
-levothyroxine continued
#essential HTN
-losartan,metoprolol continued
-Lasix continued
#DVT prophylaxis
-Lovenox
#CODE status
-full code
More than 30 minutes spent in discharge including
Final examination of the patient
Summarizing hospital stay
Instructions for continuing care to all relevant caregivers
Preparation of discharge records, prescriptions, and referral forms
Total time spent (in minutes): 36
Anticipated Discharge: Today
Subjective/Interval History
-
Date of Service: January 25, 2025
no acute events
Objective Data
-
Labs:
Laboratory Results
01/25/25
06:19
WBC 4.7 L
Hgb 10.6 L
Hct 32.0 L
Plt Count 275
Sodium 135
Potassium 4.5
Chloride 102
Carbon Dioxide 31 H
BUN 14
Creatinine 0.6
Glucose 101 H
Calcium 9.7
Vital Signs:
Vital Signs
Temp Pulse Resp BP Pulse Ox
97.8 F 70 16 125/62 96
01/25/25 07:15 01/25/25 07:15 01/25/25 07:15 01/25/25 07:15 01/25/25 07:15
I&O
01/24/25 01/25/25 01/26/25
06:59 06:59 06:59
Intake Total 1200 / 1200 960 / 960
Balance 1200 / 1200 960 / 960
Review of Systems
-
History Source: Patient
All other systems: Not reviewed unless documented
Data Reviewed
-
Ultrasound: Report Reviewed by me
Labs: Labs Reviewed by me
--- NOTE | 2025-01-25 13:13 | W.DS.TRANS ---
DC Summary - Clothing Room Supervisor
-
Discharge Instructions:
Discharge Diagnosis/Procedures Left lower extremity erythema; suspected
cellulitis
Stage IV bilateral lower extremity lymphedema;
uncontrolled
Diet Low Cholesterol,Low Fat
Activity As tolerated
Blood Work cbc and bmp in 1 week with pcp
Instructions:
Stand-Alone Forms:
Changes to Home Medications: Yes
Discharge Medications:
DC Medications w/original date entered in [facility]
atorvastatin 40 mg tablet (Lipitor) 40 mg PO QPM High Cholesterol 01/20/25
cetirizine 10 mg tablet (Zyrtec) 10 mg PO DAILY Allergies 01/20/25
furosemide 20 mg tablet (Lasix) 20 mg PO BID Fluid Retention/Swelling 01/20/25
levothyroxine 112 mcg tablet (Synthroid) 112 mcg PO DAILY Thyroid 01/20/25
losartan 50 mg tablet 50 mg PO DAILY Heart Disease/Condition 01/20/25
metoprolol succinate 25 mg tablet,extended release 24 hr (Toprol XL) 25 mg PO DAILY Heart Disease/Condition 01/20/25
naproxen 500 mg tablet 500 mg PO BIDPRN PRN MILD PAIN 01/20/25
potassium chloride 20 mEq tablet,extended release 20 meq PO DAILY Electrolyte Repletion 01/20/25
triamcinolone acetonide 0.1 % lotion 1 applic topical BID PRN itching/rash 01/21/25
cephalexin 500 mg capsule 500 mg PO QID 5 days #20 caps 01/25/25
miconazole nitrate 2 % topical powder (Miconazorb AF) 1 applic topical BID 30 days #85 grams 01/25/25
white petrolatum 41 % topical ointment (Aquaphor Healing) 1 applic topical DAILY #396 grams 01/25/25
Home Medication Changes
cephalexin 500 mg capsule 500 mg PO QID 5 days #20 caps 01/25/25
miconazole nitrate 2 % topical powder (Miconazorb AF) 1 applic topical BID 30 days #85 grams 01/25/25
white petrolatum 41 % topical ointment (Aquaphor Healing) 1 applic topical DAILY #396 grams 01/25/25
Pending Results: No
[2025-01-25] MEDS: ANCEF IV (14:37)
[2025-01-25 14:42] VITALS: BP 141/78
--- NOTE | 2025-01-25 15:33 | CM ---
MD entered order for discharge.
Spoke with patient in room .
She said she agrees with discharge.
Her spouse Patel will drive her home.She goes to wound care center at [facility].
Offered VN she requested [facility] .
TT [facility] liaison about referral.
PLAN Home with [facility]
--- NOTE | 2025-01-25 15:53 | VNURNOTE ---
Patient left prior to liaison meeting at bedside. Called patient and spoke to her and spouse. Discussed [facility] nurse/therapy, visits, schedule and homebound status. Both are agreeable and understand that visits at home will be 2-3 x per week to
assess and teach medical management.
Patient is aware that [facility] will contact them for start of care within a week after discharge from .
[facility] referral completed in [facility].
== END 2025-01-25 15:34 | disposition home health service (06) | DRG 603 ==
LOC: 3 WEST ACU 21:30
PROVIDERS: Physician Assistant; Registered Nurse; ADMITTING PHYSICIAN Hospitalist; ATTENDING PHYSICIAN Internal Medicine; EMERGENCY PHYSICIAN Emergency Medicine; FAMILY PHYSICIAN Family Medicine; OTHER PHYSICIAN Internal Medicine Infectious Disease; REFERRING PHYSICIAN Plastic Surgery
DX: L03.116 Cellulitis of left lower limb (principal); Z68.42 Body mass index [BMI] 45.0-49.9, adult; I89.0 Lymphedema, not elsewhere classified; I87.2 Venous insufficiency (chronic) (peripheral); E03.9 Hypothyroidism, unspecified; I10 Essential (primary) hypertension; E66.01 Morbid (severe) obesity due to excess calories; E78.5 Hyperlipidemia, unspecified; Z87.891 Personal history of nicotine dependence; G89.29 Other chronic pain; K59.00 Constipation, unspecified; Z96.651 Presence of right artificial knee joint
CPT/HCPCS: 80048; 80053; 83605; 85025; 85027; 87040; 93971; 96365; 96366; 96375; 97116; 97162; 97166; 97530; 99284

== ENCOUNTER 2025-02-03 10:51 | Outpatient (REF) | payer OTHER, SELFPAY | END 2025-02-03 23:59 | disposition home or self-care (01) | LOC: WOUND 10:51 | PROVIDERS: ATTENDING PHYSICIAN Surgery; FAMILY PHYSICIAN Family Medicine | DX: L30.8 Other specified dermatitis (principal); L97.829 Non-pressure chronic ulcer of other part of left lower leg with unspecified severity; L03.116 Cellulitis of left lower limb; I89.0 Lymphedema, not elsewhere classified; L30.9 Dermatitis, unspecified | CPT/HCPCS: 99215 ==

== ENCOUNTER 2025-03-17 07:51 | Outpatient (RCR) | payer OTHER, SELFPAY | END 2025-03-17 23:59 | disposition home or self-care (01) | LOC: RPT 07:51 | PROVIDERS: ATTENDING PHYSICIAN Plastic Surgery; FAMILY PHYSICIAN Family Medicine | DX: I89.0 Lymphedema, not elsewhere classified (principal); Z73.6 Limitation of activities due to disability; M54.2 Cervicalgia | CPT/HCPCS: 97110; 97140; 97163; 97164; 97530 ==